=== PATIENT | female | born 1980 | race Two or more races ===

== ENCOUNTER 2018-07-10 11:44 | Observation (INO) | payer OTHER ==
[~2018-07-10] VITALS: Ht 154.9 cm; Wt 51.8 kg
[2018-07-10 13:10] VITALS: BP 91/55
== END 2018-07-10 14:00 | disposition home or self-care (01) ==
LOC: LDOP 11:44 → LDIP 12:02
PROVIDERS: ADMIT Obstetrics & Gynecology; ATTEND Obstetrics & Gynecology
DX: O09.523 Supervision of elderly multigravida, third trimester (principal); Z3A.00 Weeks of gestation of pregnancy not specified
CPT/HCPCS: 59025; G0378; 99201; G0463

== ENCOUNTER 2018-07-18 18:55 | Outpatient (CLI) | payer OTHER ==
[~2018-07-18] VITALS: Ht 157.5 cm; Wt 52.0 kg
== END 2018-07-18 20:10 | disposition home or self-care (01) ==
LOC: LDOP 18:55
PROVIDERS: ATTEND Obstetrics & Gynecology
DX: O36.8130 Decreased fetal movements, third trimester, not applicable or unspecified (principal); O09.93 Supervision of high risk pregnancy, unspecified, third trimester; O32.1XX0 Maternal care for breech presentation, not applicable or unspecified; Z3A.35 35 weeks gestation of pregnancy
CPT/HCPCS: 59025; 76819; 99201; G0463

== ENCOUNTER 2018-08-23 13:28 | Inpatient (IN) | payer OTHER ==
[~2018-08-23] VITALS: Ht 157.5 cm; Wt 55.0 kg
[2018-08-31] MEDS: LACTATED RINGERS 1,000 ML IV SCH (23:00)
[2018-08-31] MEDS ORDERED: OXYTOCIN 30U/ 0.9% NaCL 500ML 500 ML IV ONE (23:06)
[2018-08-31] MEDS ORDERED: D5%-LACTATED RINGERS 1,000 ML IV SCH (23:06)
[2018-08-31] MEDS ORDERED: AMPICILLIN 2 GM in SODIUM CHLORIDE 0.9% 100 ML IVPB STA (23:06)
[2018-08-31] MEDS ORDERED: OXYTOCIN 30U/ 0.9% NaCL 500ML 500 ML IV PRN (23:06)
[2018-08-31] MEDS ORDERED: OXYTOCIN 30U/ 0.9% NaCL 500ML 500 ML ONE (23:14)
[2018-08-31] MEDS ORDERED: MISOPROSTOL 200 MCG TABLET ONE (23:14)
[2018-08-31] MEDS ORDERED: MISOPROSTOL 25 MCG TABLET ONE (23:14)
[2018-08-31] MEDS ORDERED: LIDOCAINE/PF 1%, 30ML ONE (23:14)
[2018-08-31 23:29] LABS: BASOPHILS # (AUTO) 0.08 x10^3/uL (0-0.1); BASOPHILS % (AUTO) 1 % (0-1); EOSINOPHILS # (AUTO) 0.01 x10^3/uL (0-0.4); EOSINOPHILS % (AUTO) 0 % (1-7); LYMPHOCYTES # (AUTO) 1.43 x10^3/uL (1-3.4); LYMPHOCYTES % (AUTO) 17 % (22-44); MD NO; MEAN CORPUSCULAR HEMOGLOBIN 32.7 pg (27.0-34.8); MEAN CORPUSCULAR HGB CONC 33.8 g/dL (32.4-35.8); MEAN CORPUSCULAR VOLUME 96.9 fL (80-100); MEAN PLATELET VOLUME 7.6 fL (7.4-10.4); MONOCYTES # (AUTO) 0.68 x10^3/uL (0.2-0.8); MONOCYTES % (AUTO) 8 % (2-9); NEUTROPHILS # (AUTO) 6.07 x10^3/uL (1.8-6.8); NEUTROPHILS % (AUTO) 73 % (42-75); PLATELET COUNT 185 x10^3/uL (130-400); RED BLOOD COUNT 4.19 x10^6/uL (3.82-5.3); RED CELL DISTRIBUTION WIDTH 13.7 % (9.6-15.2)
[2018-08-31] MEDS ORDERED: MISOPROSTOL 25 MCG TABLET VG PRN (23:30)
[2018-08-31] MEDS ORDERED: FENTANYL PF 100 MCG/2ML IV PRN (23:30)
[2018-08-31] MEDS ORDERED: ONDANSETRON 2MG/ML, 2ML IVPush PRN (23:30)
[2018-08-31] MEDS ORDERED: TERBUTALINE 1 MG/ML, 1ML IVPush PRN (23:30)
[2018-08-31] MEDS ORDERED: CALCIUM CARBONATE 500 MG TAB.CHEW PO PRN (23:30)
[2018-09-01] MEDS ORDERED: FENTANYL/BUPIV./NS/PF 250 ML EPIDCONT SCH ×2 (03:13→11:53)
[2018-09-01] MEDS: AMPICILLIN 1 GM in SODIUM CHLORIDE 0.9% 100 ML IVPB SCH ×5 (03:34→19:30)
[2018-09-01] MEDS ORDERED: LACTATED RINGERS 1,000 ML IV SCH ×2 (11:53→13:55)
[2018-09-01] MEDS ORDERED: LACTATED RINGERS 1,000 ML IVBOLUS PRN ×2 (12:00→14:00)
[2018-09-01] MEDS ORDERED: FENTANYL PF 500 MCG, BUPIVACAINE/PF 0.5%, 30ML 62.5 ML in SODIUM CHLORIDE 0.9% 177.5 ML EPIDCONT SCH (12:00)
[2018-09-01] MEDS ORDERED: FENTANYL PF 100 MCG/2ML ONE ×2 (12:20→19:57)
[2018-09-01] MEDS ORDERED: BUPIVACAINE 0.25% ONE (12:28)
[2018-09-01] MEDS: FENTANYL PF 100 MCG/2ML IVPush PRN ×2 (12:30→20:00)
[2018-09-01] MEDS: LACTATED RINGERS 1,000 ML IV SCH (12:47)
[2018-09-01] MEDS ORDERED: EPHEDRINE 50 MG/ML, 1ML ONE (13:11)
[2018-09-01] MEDS ORDERED: BUPIVACAINE EPIDCONT SCH (13:55)
[2018-09-01] MEDS ORDERED: FENTANYL EPIDCONT SCH (13:55)
[2018-09-01] MEDS ORDERED: [UNRECOGNIZED DRUG - OTHER] EPIDCONT SCH (13:55)
[2018-09-01] MEDS ORDERED: EPHEDRINE 50 MG/ML, 1ML IVPush PRN (14:00)
[2018-09-01] MEDS ORDERED: NALOXONE 0.4 MG/ML, 1ML IVPush PRN (14:00)
[2018-09-01] MEDS ORDERED: DIPHENHYDRAMINE 50 MG/ML, 1ML IVPush PRN (14:00)
[2018-09-01] MEDS ORDERED: ONDANSETRON 2MG/ML, 2ML IVPush PRN (14:00)
[2018-09-01] MEDS ORDERED: MISOPROSTOL 200 MCG TABLET PR PRN (20:15)
[2018-09-01] MEDS: OXYTOCIN 30U/ 0.9% NaCL 500ML 500 ML IV SCH (20:26)
[2018-09-01] MEDS: IBUPROFEN 600 MG TABLET PO PRN (20:30)
[2018-09-01] MEDS ORDERED: OXYcodone/APAP 5/325MG TABLET PO PRN (20:30)
[2018-09-01] MEDS ORDERED: ACETAMINOPHEN 325 MG TABLET PO PRN (20:30)
[2018-09-01] MEDS ORDERED: ONDANSETRON 2MG/ML, 2ML IV PRN (20:30)
[2018-09-01] MEDS ORDERED: METHYLERGONOVINE 0.2 MG/ML IM PRN (20:30)
[2018-09-01] MEDS ORDERED: OXYTOCIN 30U/ 0.9% NaCL 500ML 500 ML ONE (20:39)
[2018-09-01] MEDS ORDERED: IBUPROFEN 600 MG TABLET ONE (21:25)
[2018-09-01 21:30] VITALS: BP 101/60
[2018-09-01 22:40] VITALS: BP 101/60
[2018-09-02 00:15] VITALS: BP 94/60
[2018-09-02 04:15] VITALS: BP 94/64
[2018-09-02 06:09] LABS: BASOPHILS # (AUTO) 0.04 x10^3/uL (0-0.1); BASOPHILS % (AUTO) 0 % (0-1); EOSINOPHILS # (AUTO) 0.02 x10^3/uL (0-0.4); EOSINOPHILS % (AUTO) 0 % (1-7); LYMPHOCYTES # (AUTO) 1.53 x10^3/uL (1-3.4); LYMPHOCYTES % (AUTO) 11 % (22-44); MD NO; MEAN CORPUSCULAR HEMOGLOBIN 33.2 pg (27.0-34.8); MEAN CORPUSCULAR HGB CONC 34.6 g/dL (32.4-35.8); MEAN CORPUSCULAR VOLUME 95.9 fL (80-100); MEAN PLATELET VOLUME 7.4 fL (7.4-10.4); MONOCYTES # (AUTO) 1.12 x10^3/uL (0.2-0.8); MONOCYTES % (AUTO) 8 % (2-9); NEUTROPHILS # (AUTO) 11.56 x10^3/uL (1.8-6.8); NEUTROPHILS % (AUTO) 81 % (42-75); PLATELET COUNT 165 x10^3/uL (130-400); RED BLOOD COUNT 2.93 x10^6/uL (3.82-5.3); RED CELL DISTRIBUTION WIDTH 13.3 % (9.6-15.2)
[2018-09-02] MEDS: OXYTOCIN 30U/ 0.9% NaCL 500ML 500 ML IV SCH ×2 (06:26→16:26)
[2018-09-02] MEDS: PRENATAL VIT/IRON/FA 1 EACH TABLET PO SCH (07:49)
[2018-09-02] MEDS: DOCUSATE 100 MG CAPSULE PO PRN (07:49)
[2018-09-02 07:50] VITALS: BP 93/59
[2018-09-02] MEDS: IBUPROFEN 600 MG TABLET PO PRN ×3 (07:50→19:51)
[2018-09-02 13:00] VITALS: BP 108/62
[2018-09-02] MEDS: OXYcodone/APAP 5/325MG TABLET PO PRN (13:36)
[2018-09-02 16:00] VITALS: BP 110/58
[2018-09-02 19:49] VITALS: BP 100/64
[2018-09-03] MEDS: OXYTOCIN 30U/ 0.9% NaCL 500ML 500 ML IV SCH ×2 (02:26→12:26)
[2018-09-03] MEDS: OXYcodone/APAP 5/325MG TABLET PO PRN (03:41)
[2018-09-03] MEDS: DOCUSATE 100 MG CAPSULE PO PRN ×2 (03:43→09:08)
[2018-09-03 08:35] VITALS: BP 98/66
[2018-09-03] MEDS: IBUPROFEN 600 MG TABLET PO PRN (09:08)
[2018-09-03] MEDS: PRENATAL VIT/IRON/FA 1 EACH TABLET PO SCH (09:08)
[2018-09-03] MEDS ORDERED: DOCU-131 PO (11:05)
[2018-09-03] MEDS ORDERED: IBUP-1222 PO (11:06)
== END 2018-09-03 14:05 | disposition home or self-care (01) | DRG 806 ==
LOC: LDIP 08-31 21:30 → 2NW 09-01 22:07
PROVIDERS: ADMIT Obstetrics & Gynecology; ATTEND Obstetrics & Gynecology
PROC: 10E0XZZ Delivery of Products of Conception, External Approach (ICD-10-PCS; principal; 2018-09-01)
PROC: 0KQM0ZZ Repair Perineum Muscle, Open Approach (ICD-10-PCS; 2018-09-01)
PROC: 3E0R3BZ Introduction of Anesthetic Agent into Spinal Canal, Percutaneous Approach (ICD-10-PCS; 2018-09-01)
PROC: 00HU33Z Insertion of Infusion Device into Spinal Canal, Percutaneous Approach (ICD-10-PCS; 2018-09-01)
PROC: 3E033VJ Introduction of Other Hormone into Peripheral Vein, Percutaneous Approach (ICD-10-PCS; 2018-09-01)
DX: O36.5930 Maternal care for other known or suspected poor fetal growth, third trimester, not applicable or unspecified (principal); O99.354 Diseases of the nervous system complicating childbirth; Z37.0 Single live birth; O48.0 Post-term pregnancy; O99.824 Streptococcus B carrier state complicating childbirth; Z3A.41 41 weeks gestation of pregnancy; G93.89 Other specified disorders of brain; O69.81X0 Labor and delivery complicated by cord around neck, without compression, not applicable or unspecified; O70.1 Second degree perineal laceration during delivery
CPT/HCPCS: 36415; 82803; 85025; 86850; 86900; G0378; J0290; J3010; J2590; J7120

== ENCOUNTER 2018-08-29 10:54 | Outpatient (CLI) | payer OTHER ==
[~2018-08-29] VITALS: Ht 157.5 cm; Wt 54.5 kg
[2018-08-29 11:02] VITALS: BP 112/76
== END 2018-08-29 11:45 | disposition home or self-care (01) ==
LOC: LDOP 10:54
PROVIDERS: ATTEND Obstetrics & Gynecology
DX: O36.5930 Maternal care for other known or suspected poor fetal growth, third trimester, not applicable or unspecified (principal); Z3A.40 40 weeks gestation of pregnancy
CPT/HCPCS: 59025; 99211; G0463